=== PATIENT | female | born 1940 | race Hispanic/Latino ===

== ENCOUNTER 2025-01-03 13:28 | Outpatient (CLI) | payer MEDICARE | END 2025-01-03 13:29 | disposition home or self-care (01) | LOC: CSHCT 13:28 | PROVIDERS: ATTEND Internal Medicine | DX: R05.3 Chronic cough (principal); R91.8 Other nonspecific abnormal finding of lung field; R59.0 Localized enlarged lymph nodes; J98.4 Other disorders of lung | CPT/HCPCS: 71250; 94010; 94726; 94729; 94760 ==